=== PATIENT | female | born 1955 | race Asian ===

== ENCOUNTER 2018-10-08 12:56 | Emergency (ER) | payer OTHER ==
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
[2018-10-08 13:10] VITALS: BP 136/90
== END 2018-10-08 13:17 | disposition home or self-care (01) ==
LOC: EDUNIT#
DX: S16.1XXA Strain of muscle, fascia and tendon at neck level, initial encounter (principal); V49.19XA Passenger injured in collision with other motor vehicles in nontraffic accident, initial encounter; Y92.481 Parking lot as the place of occurrence of the external cause